=== PATIENT | male | born 1960 | race Hispanic/Latino ===

== ENCOUNTER 2024-03-31 14:44 | Emergency (ER) | payer SELFPAY ==
[2024-03-31] MEDS ORDERED: cloNIDine 0.1 MG TAB ONE (15:36)
[2024-03-31] MEDS ORDERED: Ketotifen 0.035% Ophth Soln 5 ml Bottle EA EYE SCH (16:00)
== END 2024-03-31 16:21 | disposition home or self-care (01) ==
LOC: NAV ERS 14:44
DX: H10.13 Acute atopic conjunctivitis, bilateral (principal); I10 Essential (primary) hypertension; Z79.899 Other long term (current) drug therapy
CPT/HCPCS: 99283